=== PATIENT | female | born 1970 | race Two or more races ===

== ENCOUNTER → 2023-10-13 | Outpatient (CLI) | payer MEDICAID | END | disposition home or self-care (01) | LOC: XYW 09:14 | PROVIDERS: ATTEND Internal Medicine Pulmonary Disease | DX: J44.9 Chronic obstructive pulmonary disease, unspecified (principal) | CPT/HCPCS: 94060; 94727; 94729 ==

== ENCOUNTER → 2023-11-10 | Outpatient (CLI) | payer MEDICAID ==
[~2023-11-10] MED LIST: EZ PAQUE SUSP 12OZ BTL ONE
== END | disposition home or self-care (01) ==
LOC: XYW 15:19
PROVIDERS: ATTEND Internal Medicine Gastroenterology
DX: R13.10 Dysphagia, unspecified (principal)
CPT/HCPCS: 74230